=== PATIENT | female | born 1950 | race Caucasian/White ===

== ENCOUNTER 2018-08-25 00:36 | Emergency (ER) | payer MEDICAID, OTHER ==
[~2018-08-25] VITALS: Ht 147.3 cm; Wt 48.1 kg
[2018-08-25 00:55] VITALS: BP_SYST 128
[2018-08-25] MEDS ORDERED: ONDANSETRON 4 MG ODT TAB PO ONE (01:00)
[2018-08-25 01:23] VITALS: BP_SYST 128
== END 2018-08-25 01:23 | disposition home or self-care (01) ==
LOC: SED 00:36
DX: R11.2 Nausea with vomiting, unspecified (principal); R19.7 Diarrhea, unspecified; R03.0 Elevated blood-pressure reading, without diagnosis of hypertension
CPT/HCPCS: 99283; Q0162